=== PATIENT | male | born 1955 | race Caucasian/White ===

== ENCOUNTER 2022-06-25 14:39 | Inpatient (IN) | payer MEDICARE, OTHER, SELFPAY ==
[2022-06-25] VITALS (30 sets, daily range): BP systolic 133–162; BP diastolic 67–87; PULSE 48–100; RESP 10–23; TEMP 36.2–37; O2SAT 97–99
--- NOTE | 2022-06-25 14:30 | DI.CT_ITS ---
Exam(s) CT HEAD - STROKE PROTOCOL EXAM: CT HEAD - STROKE PROTOCOL CLINICAL HISTORY: left facial droop and slurred speech since 1400. TECHNIQUE: Imaging Protocol: Axial computed tomography images with coronal and sagittal reformatted images were created and reviewed COMPARISON: No exams were available for comparison FINDINGS: There are no skull fractures nor fluid in the visualized paranasal sinuses. There is no evidence of intracranial hemorrhage, mass effect, or shift of midline structures. There are no extra-axial fluid collections. The ventricles are not enlarged or shifted and there is no blo od within the ventricular system nor within the basal cisterns. IMPRESSION: No acute intracranial findings on this noninfused CT scan of the brain. Called by myself to ER. RADIATION DOSE DELIVERED: 922.7mGy.cm Total DLP DATA REPOSITORY: All CT scans at this facility are submitted to the National Radiology Data Registry (NRDR) Dose Index Registry (DIR) with the [employer] (A[employer]). RADIATION OPTIMIZATION: All CT scans at this facility use at least one of these dose optimization te chniques: automated exposure control; mA and/or kV adjustment per patient size (includes targeted exa ms where dose is matched to clinical indication); or iterative reconstruction.
--- NOTE | 2022-06-25 14:45 | DI.CT_ITS ---
Exam(s) CT BRAIN NECK CTA EXAM: CT BRAIN NECK CTA CLINICAL HISTORY: cta brain and neck. TECHNIQUE: Imaging Protocol: Axial CT angiography was performed with multi-slice acquisition and mu lti-planar and/or 3D reconstructions. CONTRAST MATERIAL: Intravenous: Omnipaque 350 Contrast volume:structured data in ml COMPARISON: MR MR BRAIN WO from 06/25/2022 FINDINGS: CTA Neck W: Aortic arch anatomy: The aortic arch anatomy is conventional. Anterior circulation: Aortic arch anatomy is conventional. No significant stenosis at the origin the great vessels off the aortic arch. Both common carotid arteries ascend with normal luminal diameters. There is no signif icant stenosis at the common carotid arteries and proximal internal carotid arteries and the proximal ICAs are patent in the neck and skull base. Posterior circulation: Both vertebral arteries ascend with normal luminal diameters after originated conventional fashion of f of the subclavian arteries. Both vertebral arteries ascend with generous patent luminal diameters and no evidence of intraluminal thrombus nor dissection. At the skull base both vertebral arteries c ontribute to the formation of the basilar artery. CTA Brain W: Anterior circulation: Both internal carotid arteries are patent in the skull base-carotid canals and cavernous sinuses. Weir praclinoid aspects are patent and nonaneurysmal. Both A1 segments are patent as are the anterior cer ebral arteries. There is no evidence of aneurysm at the level of the anterior communicating artery. Both middle cerebral arteries appear patent. No intraluminal thrombus. No tight stenoses. No occlu ailyn. No aneurysms. Posterior circulation: Basilar artery ascends with normal luminal diameter. No stenosis. No dolichoectasia. Distally give s off superior cerebellar arteries and above this level terminates as patent bilateral posterior cere bral arteries. There are no posterior communicating arteries on either side of the [id number]. No evidence of aneurysm tip of the basilar artery. CT BRAIN: There is no evidence of intracranial hemorrhage, mass effect, or shift of midline structures. There are no extra-axial fluid collections. Ventricles are not enlarged or shifted. There are no ring enh ancing lesions in the brain and no abnormal meningeal enhancement. There is a subtle area of hypodensity in the subcortical white matter high right frontal lobe. No he morrhage nor enhancement at this level. IMPRESSION: 1. No significant narrowing of the carotid and vertebral arteries in the neck. 2. Intracranial arteries are patent. No intraluminal thrombus nor stenoses evident. No aneurysms. 3. Subtle area of hypodensity in the high right frontal subcortical white matter. This may be sign ificant. No ring enhancing lesions at this level nor elsewhere in the brain. No abnormal meningeal enhancement. Called by myself to ER. Physician RADIATION DOSE DELIVERED: 2,301.38mGy.cm Total DLP DATA REPOSITORY: All CT scans at this facility are submitted to the National Radiology Data Registry (NRDR) Dose Index Registry (DIR) with the [employer] (ACR). RADIATION OPTIMIZATION: All CT scans at this facility use at least one of these dose optimization te chniques: automated exposure control; mA and/or kV adjustment per patient size (includes targeted exa ms where dose is matched to clinical indication); or iterative reconstruction.
[2022-06-25 14:59] LABS: Source Nasal/Nares
--- NOTE | 2022-06-25 15:00 | DI.MRI_ITS ---
Exam(s) MR BRAIN WO EXAM: MR BRAIN WO CLINICAL HISTORY: left facial droop and slurred speech TECHNIQUE: Multiplanar multisequence MRI of the brain was performed. COMPARISON: No exams were available for comparison FINDINGS: CEREBRAL PARENCHYMA: There is no evidence of intracranial hemorrhage, mass effect, or shift of midline structures. There are no extra-axial fluid collections. Ventricles are not enlarged or shifted. There is no significant focal signal abnormality in the cerebellar hemispheres nor within the jade, m idbrain, and thalami. In addition to multiple small sub cm FLAIR bright foci of periventricular signal abnormality, there i s also a thin strip of subcortical signal abnormality on DWI consistent with restricted diffusion in the high right frontoparietal region, this corresponding to the area of subtle hypodensity on the CT scan and consistent with an area of nonhemorrhagic early CVA, not yet exhibiting significant signal a bnormality on FLAIR and T2 sequences. No evidence of hemorrhage at this level nor elsewhere in the b rain. PITUITARY GLAND: No mass nor parasellar abnormality. No obvious abnormality in the cavernous sinuses. FLOW VOIDS: The expected flow void are noted. No evidence of vascular occlusion nor obvious tight filomena nosis. No obvious aneurysm nor obvious vascular malformation. PARANASAL SINUSES: The visualized paranasal sinuses appear unremarkable. No obvious finding ORBITS: No obvious findings. IMPRESSION: Early right-sided subcortical CVA (nonhemorrhagic) in territory of the right middle cerebral artery. This is in the right frontoparietal region. Findings discussed by myself with ER physician DATA REPOSITORY:
--- NOTE | 2022-06-25 15:00 | DI.RAD_ITS ---
Exam(s) XR PORTABLE CHEST AP EXAM: XR PORTABLE CHEST AP CLINICAL HISTORY: cva. TECHNIQUE: 2D digital imaging was performed. COMPARISON: No exams were available for comparison FINDINGS: Single AP portable view. Heart size is upper normal. The mediastinum is not widened. No confluent infiltrates nor pleural effusions. No pulmonary edema. No pneumothorax. Degenerative changes in the right shoulder joint noted. IMPRESSION: No acute pulmonary findings on this single AP portable view of the chest. DATA REPOSITORY: RADIATION DOSE DELIVERED:
[2022-06-25 15:01] LABS: Abs Immature Grans 0.02 10^3/uL (0.0-0.06); Absolute Basophil Count 0.03 10^3/uL (0.0-0.2); Absolute Eosinophil Count 0.19 10^3/uL (0.0-0.7); Absolute Lymphocyte Count 1.62 10^3/uL (1.2-3.4); Absolute Monocyte Count 0.54 10^3/uL (0.1-0.8); Absolute Neutrophil Count 2.35 10^3/uL (1.2-6.7); Basophils % 0.6; HCT 36.1 % (40.0-50.0); HGB 11.4 g/dL (13.5-17.5); Immature Grans % 0.4; Lymphocytes % 34.1; MCH 27.9 pg (27.0-33.0); MCHC 31.6 % (32.0-36.0); MCV 88 fL (80-95); MPV 9.8 fL (8.0-11.0); Monocytes % 11.4; Neutrophils % 49.5; Platelet Count 283 10^3/uL (130-400); RBC 4.09 10^6/uL (4.36-5.78); RDW 15.4 % (11.8-14.1); RDW-SD 50.2 fL; WBC 4.75 10^3/uL (4.4-10.8)
[2022-06-25 15:22] LABS: ALT 16 U/L (16-63); AST 12 U/L (15-37); Albumin 3.4 g/dL (3.4-5.0); Alkaline Phosphatase 67 U/L (46-116); Anion Gap 8.9 mmol/L (3-11); BUN 17 mg/dL (7-18); Bilirubin, Total 0.3 mg/dL (0.2-1.0); CO2 25.1 mmol/L (21.0-32.0); CREATININE 1.2 mg/dL (0.70-1.30); Calcium 8.4 mg/dL (8.5-10.1); Chloride 106 mmol/L (98-107); Estimated GFR 65.46 (mL/min/1.73m2); Glucose 91 mg/dL (74-106); Sodium 140 mmol/L (136-145); Total Protein 6.9 g/dL (6.4-8.2); Troponin I < 50 ng/L (<or=60)
[2022-06-25] MEDS: Omnipaque 350 MG/ML 500 ML BTL-Imaging package IJ (16:13)
--- NOTE | 2022-06-25 16:40 | ED.GENADUL_ITS ---
Discharge Plan Disposition Patient Disposition: [facility] INPATIENT Condition: Serious Discharge Details Clinical Impression: Acute cerebrovascular accident (CVA) Admit Date/Time: 06/25/22 18:48 Admit Provider: Manas Louise Attending Provider: Manas Louise Primary Care Provider: Angelina,Local ED Provider: Tutu Chaidez Discharge Data Discharge Date/Time-TO BE ENTERED AT DEPARTURE: 06/25/22 19:46 Medical Decision Making 1707 -- 67-year-old male here with new onset mild dysphasia and partial paralysis left face that started at 2 PM today. Presentation is consistent with acute CVA. Stat CT of the head was interpreted by radiology: No acute intracranial findings noted. On reassessment, partial left facial paralysis is improving. Patient also notes improvement in speech. I considered thrombolytic. Patient has low NIH stroke scale and improving symptoms. Patient declines thrombolytic treatment as part of a shared decision- making process given discussion of risk-benefit. Plan to obtain stat CTA of the brain and neck and MRI of the brain. I called and spoke with on-call neurologist, Dr. Pruitt, discussed ED presentation course, she agrees with treatment and recommended assessing swallow. Patient was able to swallow without any difficulty. Dr. Pruitt felt that his swallow was impacted, tPA should be considered but otherwise given low NIH stroke scale and improving symptoms, she agrees that tPA is not indicated. Plan to initiate treatment with aspirin 81 mg and Plavix 300 mg as recommended by Dr. Pruitt. -- Patient reassessed multiple times and continues to show improvement in deficit. Speech much clearer at this time. -- I spoke with the hospitalist, discussed ED presentation course, they will admit the patient. Care transition to hospitalist service at time of admission. Lab Data Lab results reviewed: Yes I reviewed the patient's lab results. Labs: Laboratory Tests Range/Units 06/25/22 06/25/22 06/25/22 14:54 14:54 14:54 WBC (4.4-10.8) 10^3/uL 4.75 RBC (4.36-5.78) 10^6/uL 4.09 L Hgb (13.5-17.5) g/dL 11.4 L Hct (40.0-50.0) % 36.1 L MCV (80-95) fL 88 MCH (27.0-33.0) pg 27.9 MCHC (32.0-36.0) % 31.6 L RDW (11.8-14.1) % 15.4 H Plt Count (130-400) 10^3/uL 283 MPV (8.0-11.0) fL 9.8 Immature Gran % 0.4 Neutrophils % 49.5 Lymphocytes % 34.1 Monocytes % 11.4 Eosinophils % 4.0 Basophils % 0.6 Nucleated RBC % (0.0-0.3) % 0.0 Absolute Neutrophils (1.2-6.7) 10^3/uL 2.35 Absolute Lymphocytes (1.2-3.4) 10^3/uL 1.62 Absolute Monocytes (0.1-0.8) 10^3/uL 0.54 Absolute Eosinophils (0.0-0.7) 10^3/uL 0.19 Absolute Basophils (0.0-0.2) 10^3/uL 0.03 Sodium (136-145) mmol/L 140 Potassium (3.5-5.1) mmol/L 4.0 Chloride (98-107) mmol/L 106 Carbon Dioxide (21.0-32.0) mmol/L 25.1 Anion Gap (3-11) mmol/L 8.9 BUN (7-18) mg/dL 17 Creatinine (0.70-1.30) mg/dL 1.2 Est GFR (CKD-EPI 2020) (mL/min/1.73m2) 65.46 Glucose (74-106) mg/dL 91 Calcium (8.5-10.1) mg/dL 8.4 L Magnesium (1.8-2.4) mg/dL 2.0 Total Bilirubin (0.2-1.0) mg/dL 0.3 AST (15-37) U/L 12 L ALT (16-63) U/L 16 Alkaline Phosphatase (46-116) U/L 67 Troponin I (<or=60) ng/L < 50 Total Protein (6.4-8.2) g/dL 6.9 Albumin (3.4-5.0) g/dL 3.4 COVID-19 Source Nasal/Nares HPI General Mode of arrival: ambulatory . Date/Time Provider Initiated Documentation: 06/25/22 14:42 . Limitations to Documentation: no limitations . Information obtained by: patient . HPI Narrative: 67-year-old male presents with chief complaint of difficulty with speech. Symptoms started suddenly around 2 PM while he was mountain biking. Patient notes his speech seems somewhat slurred. He has associated left-sided facial weakness. He denies weakness in his extremities. Patient denies recent trauma. No headache. No anticoagulants. Related Data Home Medications Medication Instructions Recorded Confirmed lisinopril 10 mg tablet 0.5 tab DAILY 06/25/22 06/25/22 tadalafil 5 mg tablet 1 tab DAILY 06/25/22 06/25/22 testosterone 1.62 % (20.25 mg/1.25 20 mg DAILY 06/25/22 06/25/22 gram) transdermal gel packet aspirin 81 mg chewable tablet 81 mg CH DAILY #30 tabs 06/26/22 (Children's Aspirin) atorvastatin 20 mg tablet 20 mg PO QHS #30 tabs 06/26/22 clopidogrel 75 mg tablet 75 mg PO DAILY #30 tabs 06/26/22 Previous Rx's Medication Instructions Recorded aspirin 81 mg chewable tablet 81 mg CH DAILY #30 tabs 06/26/22 (Children's Aspirin) atorvastatin 20 mg tablet 20 mg PO QHS #30 tabs 06/26/22 clopidogrel 75 mg tablet 75 mg PO DAILY #30 tabs 06/26/22 Allergies Allergy/AdvReac Type Severity Reaction Status Date / Time shellfish derived Allergy Severe Unverified 06/25/22 19:44 bee venom protein (honey bee) Allergy Intermediate Unverified 06/25/22 19:44 General Stated Complaint: CVA/TIA MEG: 3 Review of Systems All systems reviewed & are unremarkable except as noted in HPI and below Constitutional Constitutional: Denies fever(s) and Denies weakness Cardiovascular Cardiovascular: Denies chest pain Musculoskeletal Musculoskeletal: Denies numbness Neurologic Neurologic: Denies numbness, Denies sensory deficit and Denies weakness PFSH All Active Problems (Updated 06/26/22 @ 20:41 by Allison Pruitt MD) Carotid stenosis, asymptomatic (Acute) Hyperlipidemia (Acute) Prediabetes (Acute) BPH (benign prostatic hyperplasia) (Chronic) HTN (hypertension) (Chronic) Acute cerebrovascular accident (CVA) (Acute) Medical History (Updated 06/26/22 @ 20:41 by Allison Pruitt MD) AAA (abdominal aortic aneurysm) Surgical History (Updated 06/26/22 @ 08:28 by Manas Louise) S/P ACL repair Left Social History Smoking/Tobacco Use Status: Never Smoking risk assessment performed?: Yes Alcohol Intake: current Alcohol Intake frequency: holidays/special occasions only Substance use type: does not use Do you feel safe at home: Yes Do you feel safe in your relationship?: Yes Exam Const General: cooperative and no acute distress HENMT Head: normocephalic and atraumatic Mouth: moist mucous membranes Eyes Conjunctivae: normal conjunctivae Sclera: normal sclerae EOM: EOM intact bilaterally Neck Neck: trachea midline and supple Resp Auscultation: clear to auscultation bilaterally, no rales, no rhonchi and no wheezes Cardio Rate: regular rate and not tachycardic Rhythm: regular rhythm GI Palpation: soft, not firm, no guarding, no masses, not rigid and nontender Skin General skin exam: no rashes or lesions noted Neuro General: patient alert, patient awake, patient oriented x3 and tone normal Cognition: normal cognition Speech: abnormal speech (mild dysphasia ) Motor: other (Strength 5 out of 5 all extremities, left facial droop noted - partial paral) Sensory Exam: no sensory deficits noted Extrem General: no edema Psych Appearance: grossly normal Mental Status: mental status grossly normal Speech and Movement: speech and movement normal Course Vital Signs Vital signs: Vital Signs Temperature 36.2 C L 06/25/22 15:13 Pulse 55 L 06/25/22 15:13 Respiratory Rate 18 06/25/22 15:13 Blood Pressure 143/87 H 06/25/22 15:13 Pulse Oximetry 97 06/25/22 15:13 Temperature 36.2 C L 06/25/22 15:13 Temperature Source Tympanic 06/25/22 15:13 Pulse 55 L 06/25/22 15:13 Respiratory Rate 18 06/25/22 15:13 Respiratory Effort 06/25/22 15:20 Respiratory Depth Normal 06/25/22 15:20 Respiratory Pattern Normal 06/25/22 15:20 Blood Pressure 143/87 H 06/25/22 15:13 Blood Pressure Position Supine 06/25/22 15:13 Pulse Oximetry 97 06/25/22 15:13 Oxygen Delivery Method Room Air 06/25/22 15:13 Oxygen Flow Rate 0 06/25/22 15:13 Pain Level 0 06/25/22 15:13 Lab/Test Results Lab/Test Results: Laboratory Tests Range/Units 06/25/22 06/25/22 06/25/22 14:54 14:54 14:54 WBC (4.4-10.8) 10^3/uL 4.75 RBC (4.36-5.78) 10^6/uL 4.09 L Hgb (13.5-17.5) g/dL 11.4 L Hct (40.0-50.0) % 36.1 L MCV (80-95) fL 88 MCH (27.0-33.0) pg 27.9 MCHC (32.0-36.0) % 31.6 L RDW (11.8-14.1) % 15.4 H Plt Count (130-400) 10^3/uL 283 MPV (8.0-11.0) fL 9.8 Immature Gran % 0.4 Neutrophils % 49.5 Lymphocytes % 34.1 Monocytes % 11.4 Eosinophils % 4.0 Basophils % 0.6 Nucleated RBC % (0.0-0.3) % 0.0 Absolute Neutrophils (1.2-6.7) 10^3/uL 2.35 Absolute Lymphocytes (1.2-3.4) 10^3/uL 1.62 Absolute Monocytes (0.1-0.8) 10^3/uL 0.54 Absolute Eosinophils (0.0-0.7) 10^3/uL 0.19 Absolute Basophils (0.0-0.2) 10^3/uL 0.03 Sodium (136-145) mmol/L 140 Potassium (3.5-5.1) mmol/L 4.0 Chloride (98-107) mmol/L 106 Carbon Dioxide (21.0-32.0) mmol/L 25.1 Anion Gap (3-11) mmol/L 8.9 BUN (7-18) mg/dL 17 Creatinine (0.70-1.30) mg/dL 1.2 Est GFR (CKD-EPI 2020) (mL/min/1.73m2) 65.46 Glucose (74-106) mg/dL 91 Calcium (8.5-10.1) mg/dL 8.4 L Magnesium (1.8-2.4) mg/dL 2.0 Total Bilirubin (0.2-1.0) mg/dL 0.3 AST (15-37) U/L 12 L ALT (16-63) U/L 16 Alkaline Phosphatase (46-116) U/L 67 Troponin I (<or=60) ng/L < 50 Total Protein (6.4-8.2) g/dL 6.9 Albumin (3.4-5.0) g/dL 3.4 COVID-19 Source Nasal/Nares
[2022-06-25] MEDS: Clopidogrel 300 MG TAB PO (17:25)
[2022-06-25] MEDS: Aspirin 81 MG CHEW (18:12)
[2022-06-25 18:17] LABS: Troponin I 50 ng/L (<or=60)
--- NOTE | 2022-06-25 18:46 | HPE_ITS ---
Date of service: 06/25/22 Time of Service: 18:47 Assessment and Plan Assessment and plan (1) Acute cerebrovascular accident (CVA): Start date: 06/25/22 Status: Acute Assessment and plan: This is a 67-year-old gentleman presenting with acute onset of left facial numbness and dysarthria which has cleared on loading dose of Plavix and baby aspirin but confirmed by MRI to be in the right MCA region involving the right parietal frontal cortex. He was not candidate for tPA outside the window of treatment and has no occlusive major arterial disease. He will be observed on telemetry for rhythm and echocardiogram with bubble study will be performed. PT/OT and PHYSICIAN IN PRIVATE PRACTICE will be evaluated patient as well. He will have his lisinopril held for permissive hypertension. He is a full code. (2) HTN (hypertension): Status: Chronic Assessment and plan: Chronically on low-dose lisinopril with this being held for permissive hypertension during his acute stroke admission. Monitor and restart medication as indicated. Follow-up lab for cardiovascular risk. (3) BPH (benign prostatic hyperplasia): Status: Chronic Assessment and plan: Hold tadalafil while hospitalized. History of Present Illness History of Present Illness Chief Complaint: Sudden onset left facial weakness Narrative: This is a 67-year-old male patient presenting with chief complaint of difficulty with speech.? Symptoms started suddenly around 2 PM the day of presentation to ED while he was mountain biking.? Patient notes his speech seems somewhat s lurred.? He has associated left-sided facial weakness.? He denies weakness in his extremities.? Patient denies recent trauma.? No headache.? No anticoagulants. The patient does have a history of hypertension which is well controlled and is on daily tadalafil for mild BPH and urinary symptoms but also erectile dysfunction. He is physically active status post left knee surgery when he was younger for an ACL repair. He did notice some garbled speech but had no problems finding his words but the facial weakness cause dysarthria. His symptoms cleared after being admitted and presently he has no complaints of weakness or speaking difficulty. His memory is intact. Review of Systems Narrative: 13 point review of systems otherwise unrevealing or stable. PFSH All Active Problems (Updated 06/26/22 @ 08:21 by Manas Louise) BPH (benign prostatic hyperplasia) (Chronic) HTN (hypertension) (Chronic) Acute cerebrovascular accident (CVA) (Acute) Surgical History (Updated 06/26/22 @ 08:28 by Manas Louise) S/P ACL repair Left Social History Smoking/Tobacco Use Status: Never Smoking risk assessment performed?: Yes Alcohol Intake: current Alcohol Intake frequency: holidays/special occasions only Substance use type: does not use Do you feel safe at home: Yes Do you feel safe in your relationship?: Yes Meds Allergies and Home Medications Allergies Allergy/AdvReac Type Severity Reaction Status Date / Time shellfish derived Allergy Severe Unverified 06/25/22 19:44 bee venom protein (honey bee) Allergy Intermediate Unverified 06/25/22 19:44 Home Medications Medication Instructions Recorded Confirmed Type lisinopril 10 mg tablet 0.5 tab DAILY 06/25/22 06/25/22 History tadalafil 5 mg tablet 1 tab DAILY 06/25/22 06/25/22 History testosterone 1.62 % (20.25 mg/1.25 20 mg DAILY 06/25/22 06/25/22 History gram) transdermal gel packet Exam Narrative Exam Narrative: General: Patient appears appropriate for age, alert and oriented x3 and in no acute distress. Speech is normal. HEENT: Normocephalic, eyes with pupils equal and react to light symmetrically, extraocular movement tact and sclera anicteric. Oropharynx with moist mucosa and good dentition. Neck: Supple without JVD and no auscultated bruits. Back: Normal posture without CVA tenderness. Lungs: Clear to auscultation and percussion. Heart: Regular rate and rhythm with no murmurs gallops appreciated. Abdomen: Normal contour, soft nontender to palpation with no palpable hepatosplenomegaly. Bowel sounds positive all quadrants. Genitalia/rectal: Exam deferred. Extremities: No pitting edema, cyanosis or clubbing. Peripheral pulses intact. Well-healed scar over left knee. Follow-up joints have fair range of motion. Trace nonpitting edema over ankles and feet. Some chronic skin changes over legs with loss of hair and atrophic skin but no ulceration. Skin: Darkly tanned over sun exposed areas with actinic changes, rough texture, warm and dry. Neuro: Cranial nerves II through XII grossly intact. No focalizing motor deficits and no tremor. Reflexes physiologic and symmetrical. Negative Romberg. No Babinski's. Psych: Normal affect and mood. Normal thought processes. Remote and recent memory intact. Results Imaging Imaging Studies: EXAM: ? MR BRAIN WO CLINICAL HISTORY:? left facial droop and slurred speech TECHNIQUE:? Multiplanar multisequence MRI of the brain was performed. COMPARISON:? No exams were available for comparison FINDINGS: CEREBRAL PARENCHYMA: There is no evidence of intracranial hemorrhage, mass effect, or shift of midline structures.? There are no extra-axial fluid collections.? Ventricles are not enlarged or shifted. There is no significant focal signal abnormality in the cerebellar hemispheres nor within the jade, midbrain, and thalami. In addition to multiple small sub cm FLAIR bright foci of periventricular signal abnormality, there is also a thin strip of subcortical signal abnormality on DWI consistent with restricted diffusion in the high right frontoparietal region, this corresponding to the area of subtle hypodensity on the CT scan and consistent with an area of nonhemorrhagic early CVA, not yet exhibiting significant signal abnormality on FLAIR and T2 sequences.? No evidence of hemorrhage at this level nor elsewhere in the brain. PITUITARY GLAND: No mass nor parasellar abnormality. No obvious abnormality in the cavernous sinuses. FLOW VOIDS: The expected flow void are noted. No evidence of vascular occlusion nor obvious tight stenosis.? No obvious aneurysm nor obvious vascular malformation. PARANASAL SINUSES: The visualized paranasal sinuses appear unremarkable. No obvious finding ORBITS: No obvious findings. IMPRESSION: Early right-sided subcortical CVA (nonhemorrhagic) in territory of the right middle cerebral artery.? This is in the right frontoparietal region. Exam(s) CT BRAIN ? NECK CTA EXAM: ? CT BRAIN ? NECK CTA CLINICAL HISTORY: ? cta brain and neck. ? TECHNIQUE:? Imaging Protocol:? Axial CT angiography was performed with multi-slice acquisition and multi-planar and/or 3D reconstructions. CONTRAST MATERIAL:? Intravenous: Omnipaque 350 Contrast volume:structured data in ml COMPARISON:? MR MR BRAIN WO from 06/25/2022 FINDINGS: CTA Neck W: Aortic arch anatomy: The aortic arch anatomy is conventional. Anterior circulation: Aortic arch anatomy is conventional.? No significant stenosis at the origin the great vessels off the aortic arch.? Both common carotid arteries ascend with normal luminal diameters.? There is no significant stenosis at the common carotid arteries and proximal internal carotid arteries and the proximal ICAs are patent in the neck and skull base. Posterior circulation: Both vertebral arteries ascend with normal luminal diameters after originated conventional fashion off of the subclavian arteries.? Both vertebral arteries ascend with generous patent luminal diameters and no evidence of intraluminal thrombus nor dissection.? At the skull base both vertebral arteries contribute to the formation of the basilar artery. CTA Brain W: Anterior circulation: Both internal carotid arteries are patent in the skull base-carotid canals and cavernous sinuses.? Supraclinoid aspects are patent and nonaneurysmal.? Both A1 segments are patent as are the anterior cerebral arteries.? There is no evidence of aneurysm at the level of the anterior communicating artery. Both middle cerebral arteries appear patent.? No intraluminal thrombus.? No tight stenoses.? No occlusion.? No aneurysms. Posterior circulation: Basilar artery ascends with normal luminal diameter.? No stenosis.? No dolichoectasia.? Distally gives off superior cerebellar arteries and above this level terminates as patent bilateral posterior cerebral arteries.? There are no posterior communicating arteries on either side of the [id number].? No evidence of aneurysm tip of the basilar artery. CT BRAIN: There is no evidence of intracranial hemorrhage, mass effect, or shift of midline structures.? There are no extra-axial fluid collections.? Ventricles are not enlarged or shifted.? There are no ring enhancing lesions in the brain and no abnormal meningeal enhancement. There is a subtle area of hypodensity in the subcortical white matter high right frontal lobe.? No hemorrhage nor enhancement at this level. IMPRESSION: 1. No significant narrowing of the carotid and vertebral arteries in the neck.? 2.? Intracranial arteries are patent.? No intraluminal thrombus nor stenoses evident.? No aneurysms. 3. ? Subtle area of hypodensity in the high right frontal subcortical white matter.? This may be significant.? No ring enhancing lesions at this level nor elsewhere in the brain.? No abnormal meningeal enhancement. Labs Result diagrams: 06/26/22 06:35 06/26/22 06:35 Labs: Laboratory Results - last 24 hr 06/25/22 06/25/22 06/25/22 14:54 14:54 14:54 WBC 4.75 RBC 4.09 L Hgb 11.4 L Hct 36.1 L MCV 88 MCH 27.9 MCHC 31.6 L RDW 15.4 H Plt Count 283 MPV 9.8 Immature Gran % 0.4 Neutrophils % 49.5 Lymphocytes % 34.1 Monocytes % 11.4 Eosinophils % 4.0 Basophils % 0.6 Nucleated RBC % 0.0 Absolute Neutrophils 2.35 Absolute Lymphocytes 1.62 Absolute Monocytes 0.54 Absolute Eosinophils 0.19 Absolute Basophils 0.03 Sodium 140 Potassium 4.0 Chloride 106 Carbon Dioxide 25.1 Anion Gap 8.9 BUN 17 Creatinine 1.2 Est GFR (CKD-EPI 2020) 65.46 Glucose 91 Calcium 8.4 L Magnesium 2.0 Total Bilirubin 0.3 AST 12 L ALT 16 Alkaline Phosphatase 67 Troponin I < 50 Total Protein 6.9 Albumin 3.4 COVID-19 Source Nasal/Nares 06/25/22 17:42 WBC RBC Hgb Hct MCV MCH MCHC RDW Plt Count MPV Immature Gran % Neutrophils % Lymphocytes % Monocytes % Eosinophils % Basophils % Nucleated RBC % Absolute Neutrophils Absolute Lymphocytes Absolute Monocytes Absolute Eosinophils Absolute Basophils Sodium Potassium Chloride Carbon Dioxide Anion Gap BUN Creatinine Est GFR (CKD-EPI 2020) Glucose Calcium Magnesium Total Bilirubin AST ALT Alkaline Phosphatase Troponin I 50 Total Protein Albumin COVID-19 Source Last Vital Signs Temp 36.2 C L 06/25/22 15:13 Pulse 100 H 06/25/22 17:45 Resp 21 06/25/22 17:50 BP 162/82 H 06/25/22 17:33 Pulse Ox 99 06/25/22 17:50
[2022-06-25 22:50] LABS: TSH (W/Ref FT4) 0.53 uIU/mL (0.36-3.74)
[2022-06-25 23:04] LABS: COVID-19 PCR Negative (Negative)
[2022-06-26] VITALS (7 sets, daily range): BP systolic 134–148; BP diastolic 72–86; PULSE 55–60; RESP 12–17; TEMP 36.2–36.8; O2SAT 96–98
--- NOTE | 2022-06-26 | DI.US_ITS ---
APPROVED REPORT EXAM: Comprehensive 2D, Doppler, and color-flow Echocardiogram Patient Location: In-Patient Personnel Monitor: Tammi Dumont RDCS (AE) Indications: CVA Echo Enhancing Agent Indication: Rule out Shunt Agent(s) / Amount(s) Used: Agitated Saline 30.0 cc Comments: Contrast study was performed with 3 IV injections of 10ccs of agitated normal saline, at re , with cough and post valsalva maneuver. Other Information Study Quality: Adequate Conclusion Normal left ventricular wall thickness and chamber size. Estimated ejection fraction is 60 to 65%. Wall motion is normal Normal right ventricular size and systolic function Both atria are normal in size The atrial septum is thin and hypermobile. There is no intracardiac shunting identified with injecti on of agitated saline Trileaflet aortic valve. Mild to moderate aortic regurgitation Normal mitral valve with trace regurgitation Normal tricuspid valve with trace regurgitation Dilated aortic root and ascending aorta Wall motion Left Ventricle The left ventricle is normal size. The left ventricular systolic function is normal. The left ventric ular ejection fraction is within the normal range. There is normal left ventricular wall thickness. T here is normal LV segmental wall motion. There is no ventricular septal defect visualized. LVEF is 60 -65%. Right Ventricle The right ventricle is normal size. The right ventricular systolic function is normal. The RVSP is 22 .1 mmHg. Atria The left atrium size is normal. The right atrium size is normal. Atrial septal aneurysm is present. Aortic Valve The aortic valve is normal in structure. Aortic valve is trileaflet. There is no aortic valvular sten osis. Mild to moderate aortic regurgitation. Mitral Valve The mitral valve is normal in structure. No evidence of mitral valve stenosis. Trace mitral regurgita tion. Tricuspid Valve The tricuspid valve is normal in structure. There is no tricuspid valve stenosis. Trace tricuspid reg urgitation. Pulmonic Valve The pulmonary valve is normal in structure. There is no pulmonic valvular stenosis. Trace pulmonic re gurgitation. Great Vessels Aortic root is mildly dilated. The ascending aorta is dilated, 4.22 cm Aortic arch is normal in nilda lennox. IVC is normal in size and collapses >50% with inspiration. Pericardium There is no pericardial effusion. 2D Dimensions IVSD d PLAX 0.95 cm M: 0.6-1.2 LV Vol A2C d MOD 148.0 mL LVPW d PLAX 0.95 cm M: 0.6 - 1.2 LV Vol A4C d MOD 160.7 mL LVID d PLAX 4.63 cm M: 4.2 - 5.8 LA vol/ BSA A2C s A-L 39.0 mL/m2 LVDs 3.10 cm M: 2.5 - 4.0 LA vol/ BSA A4C s A-L 22.1 mL/m2 Ao Root d 3.80 cm M: 3.1 - 3.7 LA Vol/ BSA Biplane s A-L 30.5 mL/m2 RA Area A4C 15.24 cm2 LA Area A4C s MOD 17.21 cm2 RA Vol/ BSA A4C s A-L 17.8 mL/m2 LA Area A2C s MOD 23.70 cm2 Ao Asc Diam d 4.22 cm M: 2.6 - 3.4 LV EF A4C MOD 65.5 % LV EF Teichholz 60.5 % LV EF A2C MOD 60.9 % LVEF (So's) 63.18 % M: 52 - 72 LV EF Biplane MOD 63.2 % LV Volume 115.87 mL M: 62 - 150 SV 99.72 mL LV Volume Index 54.39 mL/m2 M: 34 - 74 SV Index 46.69 mL/m2 LV Vol Biplane MOD 157.8 mL FS 32.20 % M-Mode TAPSE 3.26 cm (M/F) >1.7 LV Diastology MV E' medial 0.072 (>0.07 m/s) E/A Ratio 0.8 LV E/e MED 7.05 (<14) MV E Vmax 0.51 (0.4-1.3 m/s) MV E' lateral 0.091 (>0.1 m/s) MV A Vmax 0.65 (0.4-1.3 m/s) LV E/e LAT 5.55 (<14) MV E/A Ratio 0.75 MV E/E' medial 7.07 MV E/E' lateral 5.56 Aortic Valve LVOT Area 3.51 cm2 AoV Area Vmax 2.85 cm2 LVOT Vmax 1.04 m/s AoV Area/ BSA (Vmax) 1.33 cm2/m2 LVOT Mean Nigel. 0.65 m/s DANIEL Mean Nigel. 2.65 cm2 LVOT Peak Grad 4.4 mmHg DANIEL Mean Nigel. Index 1.24 cm2/m2 LVOT Mean Grad 2.0 mmHg AR DT 3187 msec LVOT VTI 0.217 m AR PHT 924 msec LVOT Diam s 2.10 cm AoV Vmax 1.28 m/s Velocity Ratio 0.81 AoV Mean Nigel. 0.86 m/s AoV Peak Grad 6.6 mmHg LVOT SV 76.09 mL AoV Mean Grad 3.4 mmHg AoV VTI 0.234 m AoV Area VTI 3.24 cm2 AoV Area/ BSA (VTI) 1.52 cm/m2 Mitral Valve MV DT 426 (160-240 msec) MV PHT 123 msec MV Area PHT 1.78 cm2 MV VTI 0.281 m MV Area VTI 2.71 (4.0-6.0 cm2) Pulmonary Valve PV Vmax 1.16 (0.5-1.5 m/s) RVOT Peak Gr. 1.35 mmHg PV Peak Grad 5.4 mmHg RVOT Mean Gr. 0.55 mmHg PV Mean Grad 2.3 mmHg RVOT VTI 0.114 m PV VTI 0.206 m RVOT Vmax 0.58 m/s Tricuspid Valve TR Peak Grad 19.1 mmHg TR Vmax 2.19 m/s RA Pressure 3.00 mmHg RVSP (TR) 22.1 mmHg
[2022-06-26 06:59] LABS: Abs Immature Grans 0.01 10^3/uL (0.0-0.06); Absolute Basophil Count 0.03 10^3/uL (0.0-0.2); Absolute Eosinophil Count 0.28 10^3/uL (0.0-0.7); Absolute Lymphocyte Count 1.58 10^3/uL (1.2-3.4); Absolute Monocyte Count 0.53 10^3/uL (0.1-0.8); Absolute Neutrophil Count 2.47 10^3/uL (1.2-6.7); Basophils % 0.6; Eosinophils % 5.7; HCT 39.4 % (40.0-50.0); HGB 12.8 g/dL (13.5-17.5); Immature Grans % 0.2; Lymphocytes % 32.2; MCH 27.6 pg (27.0-33.0); MCHC 32.5 % (32.0-36.0); MCV 85 fL (80-95); MPV 9.7 fL (8.0-11.0); Monocytes % 10.8; Neutrophils % 50.5; Platelet Count 305 10^3/uL (130-400); RBC 4.63 10^6/uL (4.36-5.78); RDW 15.5 % (11.8-14.1); RDW-SD 48.7 fL
[2022-06-26 07:22] LABS: ALT 17 U/L (16-63); AST 14 U/L (15-37); Albumin 3.6 g/dL (3.4-5.0); Alkaline Phosphatase 71 U/L (46-116); Anion Gap 8.3 mmol/L (3-11); BUN 15 mg/dL (7-18); Bilirubin, Total 0.4 mg/dL (0.2-1.0); CO2 25.7 mmol/L (21.0-32.0); CREATININE 1.1 mg/dL (0.70-1.30); Calcium 8.8 mg/dL (8.5-10.1); Chloride 105 mmol/L (98-107); Estimated GFR 72.67 (mL/min/1.73m2); Glucose 95 mg/dL (74-106); Potassium 3.9 mmol/L (3.5-5.1); Sodium 139 mmol/L (136-145); Total Protein 7.5 g/dL (6.4-8.2)
[2022-06-26 08:08] LABS: Lab Add On Test COMPLETED
[2022-06-26 08:23] LABS: Calculated LDL 113 mg/dL (<100); Cholesterol 179 mg/dL (<200); HDL Cholesterol 45 mg/dL (40-60); Triglyceride 109 mg/dL (<150)
[2022-06-26 08:29] LABS: Hemoglobin A1C 6.2 % (<5.7)
[2022-06-26] MEDS: Aspirin 81 MG CHEW CH (09:07)
[2022-06-26] MEDS: Clopidogrel 75 MG TAB PO (09:07)
--- NOTE | 2022-06-26 12:57 | W.NUTCONSULT ---
Date of service: 06/26/22 Time of Service: 12:57 Nutritional Consult ASSESSMENT: 67 year old male with BMI wnl admitted yesterday with CVA. Visiting from [place]. Home meds: 10 mg lisinopril. PMH: HTN. Labs: A1c: 6.2%, chol: 179, ldl: 113, HDL: 45, tri. Manas and his are avid cyclists and follow a mostly plant based diet. Reviewed diet and life style questions in relation to CVA. Following Heart Healthy diet with adequate intake. Declined further diet education. Not considered at nutritional risk. MONITORING AND EVALUATION: will be available prn Time Spent in Nutritional Counseling and Treatment: 5
--- NOTE | 2022-06-26 13:32 | PT.INIE ---
Date of service: 06/26/22 Time of Service: 10:54 PT Notes Visit Reasons: Right MCA CVA Physical Therapy Inpatient Initial Evaluation Date: 06/26/2022 Referring Doctor: Manas Louise MD PT Orders: PT CONSULT: Limited ability Precautions: Fall. Standard. Activity as tolerated. Patient Profile/Admitting Diagnosis: Manas is a 67-year-old male patient who presented to the ED on 06/25/2022 due to partial paralysis of the L side of his face and difficulty with speech. Patient is diagnosed with acute CVA with brain MRI reading as follows: Early right-sided subcortical CVA (nonhemorrhagic) in territory of the right middle cerebral artery.? This is in the right frontoparietal region. Co-morbid conditions for this admission include HTN and BPH. PMHX: All Active Problems?(Updated 06/26/22 @ 08:21 by Manas Louise) BPH (benign prostatic hyperplasia) (Chronic) HTN (hypertension) (Chronic) Acute cerebrovascular accident (CVA) (Acute) Surgical History?(Updated 06/26/22 @ 08:28 by Manas Louise) S/P ACL repair Left Social History/Home Situation: Lives with in a private home in [facility]. Here in [place] vacationing. 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 Equipment Owned/DME: None Subjective: Agreeable to PT consult. No headache. Denies chest pain. Vision okay. Verbalizes that his speech is almost at baseline. Objective: General Observation: Mental Status: Alert and oriented as to person, place, time, and purpose. Able to pay attention, focus, and respond appropriately. Pain: Denies Vital Signs: WNL as closely monitored by nursing staff ROM: Right Upper Extremity: Shoulder Flexion lacks the last 50% of AROM due to preexisting frozen shoulder. Shoulder abduction lacks the last 50% of AROM due to preexisting frozen shoulder. Elbow flexion WFL. Wrist flexion WFL. Functional opening and closing of hand WFL. Left Upper Extremity: Shoulder Flexion WFL. Shoulder abduction WFL. Elbow flexion WFL. Wrist flexion WFL. Functional opening and closing of hand WFL. Right Lower Extremity: Hip flexion WFL. Hip abduction WFL. Knee flexion WFL. Ankle dorsiflexion WFL. Ankle plantarflexion WFL. Left Lower Extremity: Hip flexion WFL. Hip abduction WFL. Knee flexion WFL. Ankle dorsiflexion WFL. Ankle plantarflexion WFL. Strength: Right Upper Extremity: Shoulder flexors 3-/5. Shoulder abductors 3-/5. Elbow flexors 5/5. Elbow extensors 5/5. Immersion Metalcleaner strong. Left Upper Extremity: Shoulder flexors 5/5. Shoulder abductors 5/5. Elbow flexors 5/5. Elbow extensors 5/5. Immersion Metalcleaner strong. Right Lower Extremity: Hip flexors 4/5. Hip abductors 4/5. Knee flexors 5/5. Knee extensors 5/5. Ankle dorsiflexors 5/5. Ankle plantarflexors 5/5. Left Lower Extremity: Hip flexors 5/5. Hip abductors 5/5. Knee flexors 5/5. Knee extensors 5/5. Ankle dorsiflexors 5/5. Ankle plantarflexors 5/5. Bed Mobility/Transfers: Rolling independent Supine to sit independent Sit to supine independent Sit to stand independent Stand to sit independent Bed to reclining chair independent Reclining chair to bed independent Gait: Instructed patient with level surface ambulation of 350 feet independently. Negligible limp seen on the L LE due to an arthritic hip due to be repaired in August of 2022. Balance: Static Sitting: Normal Dynamic Sitting: Normal Static Standing: Fair Dynamic Standing: Fair Special Tests: Mobility Limitations Standardized Measure [facility] 6 clicks Basic Mobility Inpatient Short Form: Raw Score: 24 CMS Score: 0% deficit Tongue deviation: to L Pronator Drift: Negative on either side 30-second chair rise: 25x 4-stage Balance test: Able to to maintain feet together, semi-tandem, and full tandem positions for 10 seconds but is unable to do so with the one-legged stance. Rapid Alternating Movement: Intact Informed Consent/Education: Patient was instructed in purpose of PT consult. Assessment: Strength in B UE/LE symmetric except for the R shoulder that has been frozen. L hip antalgia minimally limiting safety of gait. Gait stable. No apparent motor affectation in all 4 limbs. Lower half of face remains minimally paretic. Patient is assessed [place] a 26995 moderate complexity based on the following: History: 67-year-old male with past medical history as indicated above Examination: Demonstrable impairment in strength, balance, and mobility level with underlying impairments and functional limitations as exhibited above as well as deficit score of 0% utilizing the [facility] Mobility Inpatient Short Form Presentation: Stable Decision Makin moderate complexity Goals: N/A. PT evaluation only. Plan of Care/Treatment Plan: N/A. PT evaluation only. DISCHARGE RECOMMENDATIONS: [X] Home with no services. Home when medically cleared by hospitalist. No equipment needs at this time. [] Home with services [specify] [] Home with outpatient PT [] [] SNF for continued rehabilitation [] [] Technical Maintenance Specialist Care [] [] SNF versus LTC based on ability to participate and progress [] TREATMENT CODE/TIME: 61074 x 20 minutes, 97807 x 21 minutes begining at 10:54 AM and 13:32 PM. Thank you for the opportunity to participate in the care of this patient. Nory Michaels PT, DPT, CLT [facility] [place], [place]
--- NOTE | 2022-06-26 16:06 | W.NEUROCONSU ---
Date of service: 06/26/22 Time of Service: 16:06 Assessment and Plan Assessment and plan (1) Carotid stenosis, asymptomatic: Status: Acute (2) Acute cerebrovascular accident (CVA): Status: Acute (3) Prediabetes: Status: Acute (4) Hyperlipidemia: Status: Acute (5) HTN (hypertension): Status: Chronic Assessment and plan: Mr. Dyson was admitted for an acute right frontal ischemic stroke manifested by dysarthria and L face weakness and numbness, now resolved, of unclear etiology. He has no evidence of large vessel disease. I recommend further work-up with extended cardiac monitoring of at least 30 days. He has already arranged this with his boat outboard engine mechanic in [place]. He will continue aspirin 81mg daily + clopidogrel 75mg daily x 30 days, after which he should continue 81mg daily alone indefinitely. ADRs discussed. He will also start atorvastatin 20mg daily for secondary stroke prevention and goal LDL <70. ADRs discussed. He has a new diagnosis of pre-diabetes which we discussed. He will work on dietary changes. Goal long-term BP <140-90. He has an incidental finding of a left carotid stenosis. We discussed this finding as well. Medication management recommended - anti-platelet, statin, and good BP control. He should have monitoring as per vascular vs neurology when he returns to [place]. He is scheduled for an upcoming hip surgery. I discussed with them my recommendation that all non-urgent procedures be postponed until at least 6months post-stroke due to increased stroke risk. Finally, we discussed risk for recurrent symptoms and what he should do in the event of new/recurrent symptoms. He should arrange for neurology follow-up in [place]. He has my card and is encouraged to reach out for any questions or concerns. History of Present Illness History of Present Illness Chief Complaint: stroke Narrative: Handedness: right. HPI: Mr. Dyson is a 67 year-old with hypertension, thoracic AAA. low testosterone, and ED. Mr. Dyson is from [place] and in the area to mountain bike. Yesterday, 06/25/22, about 1 mile into his bike ride he experienced acute onset slurred speech along with L face weakness and numbness. EMS noted left hand weakness on exam, but Mr. Dyson never noticed left hand/arm symptoms. He presented to the [facility] ER. BP 143/87. NIHSS 3. His symptoms quickly improved such that he was not a candidate for tPA. He is now asymptomatic. He was given clopidogrel 300mg + aspirin 81mg daily in the ER and continued on clopidogrel 75mg + aspirin 81mg daily. He has undergone the work-up as below. His Ivory was at bedside. He has a boat outboard engine mechanic in [place] whom he has already contacted and has arranged for cardiac monitoring there. He is scheduled for hip surgery in August. Work-up: -CTH (06/25/22): no acute findings. I reviewed these images personally and this is my personal interpretation. -CTA head/neck (06/25/22): read by radiology as normal but I see 50-60% L ICA stenosis. I reviewed these images personally and this is my personal interpretation. -MRI brain w/o (06/25/22): acute right frontal cortical stroke. Mild chronic vascular changes. I reviewed these images personally and this is my personal interpretation. -TTE (06/26/22): EF 60-65%, no wall motion abnormalities. LA ok. No PFO. -Labs: A1c 6.2, LDL 113 -Tele: no afib. Review of Systems All systems reviewed & are unremarkable except as noted in HPI and below PFSH All Active Problems (Updated 06/26/22 @ 20:41 by Allison Pruitt MD) Carotid stenosis, asymptomatic (Acute) Hyperlipidemia (Acute) Prediabetes (Acute) BPH (benign prostatic hyperplasia) (Chronic) HTN (hypertension) (Chronic) Acute cerebrovascular accident (CVA) (Acute) Medical History (Updated 06/26/22 @ 20:41 by Allison Pruitt MD) AAA (abdominal aortic aneurysm) Surgical History (Updated 06/26/22 @ 08:28 by Manas Louise) S/P ACL repair Left Social History Smoking/Tobacco Use Status: Never Smoking risk assessment performed?: Yes Alcohol Intake: current Alcohol Intake frequency: holidays/special occasions only Substance use type: does not use Do you feel safe at home: Yes Do you feel safe in your relationship?: Yes Visit Medication and Allergies Active Medications Generic Name Dose Route Start Last Admin Trade Name Freq PRN Reason Stop Dose Admin Acetaminophen 0 mg 06/25/22 18:53 Acetaminophen 325 Mg Tab PO Q4H PRN PRN Al Hydrox/Mg Hydrox/Simethicone 30 ml 06/25/22 18:53 Mylanta Suspension 30 Ml Cup PO Q2H PRN PRN Aspirin 81 mg 06/26/22 08:30 06/26/22 09:07 Aspirin 81 Mg Chew CH 81 mg DAILY SPRING Administration Clopidogrel Bisulfate 75 mg 06/26/22 08:30 06/26/22 09:07 Clopidogrel 75 Mg Tab PO 75 mg DAILY SPRING Administration Dimethicone/Zinc Oxide 0 gm 06/25/22 18:48 Faby Protect Cream 142 Gm Tube TP PRN PRN Docusate Sodium 100 mg 06/25/22 18:53 Docusate Sodium 100 Mg Cap PO TID PRN PRN Sodium Chloride 500 mls @ 0 mls/hr 06/25/22 14:48 Saline 500ml Bag IV PRN PRN As Directed Sodium Chloride 1,000 mls @ 80 mls/hr 06/25/22 19:00 Saline 1000ml Bag IV [facility]ION [facility] IV Miscellaneous Supplies 1 each 06/25/22 15:00 Iv Access IV DIRECTED SPRING Iohexol 500 ml 06/25/22 16:15 06/25/22 16:13 Omnipaque 350 Mg/Ml 500 Ml Btl-Imaging Package IJ 07/25/22 23:59 100 ml DIRECTED SPRING Administration Magnesium Hydroxide 30 ml 06/25/22 18:53 Milk Of Magnesia 30 Ml Cup PO DAILY PRN PRN Polyethylene Glycol 17 gm 06/25/22 18:53 Polyethylene Glycol 3350 17 Gm Packet PO DAILY PRN PRN Constipation Sodium Chloride 0 ml 06/25/22 14:48 Normal Saline Flush 10 Ml Syr IVP PRN PRN Sodium Chloride 250 ml 06/25/22 16:15 06/25/22 16:05 Normal Saline 250 Ml Bag IJ 50 ml DIRECTED SPRING Administration Allergies shellfish derived Allergy (Severe, Unverified 06/25/22 19:44) bee venom protein (honey bee) Allergy (Intermediate, Unverified 06/25/22 19:44) Results Last Vital Signs Temp 98.1 F 06/26/22 15:15 Pulse 59 L 06/26/22 15:15 Resp 17 06/26/22 15:15 BP 148/86 H 06/26/22 15:15 Pulse Ox 98 06/26/22 15:15 Labs Result diagrams: 06/26/22 06:35 06/26/22 06:35 Labs: Laboratory Results - last 24 hr 06/25/22 06/25/22 06/25/22 14:54 17:42 17:42 WBC RBC Hgb Hct MCV MCH MCHC RDW Plt Count MPV Immature Gran % Neutrophils % Lymphocytes % Monocytes % Eosinophils % Basophils % Nucleated RBC % Absolute Neutrophils Absolute Lymphocytes Absolute Monocytes Absolute Eosinophils Absolute Basophils Sodium Potassium Chloride Carbon Dioxide Anion Gap BUN Creatinine Est GFR (CKD-EPI 2020) Glucose Hemoglobin A1c Calcium Total Bilirubin AST ALT Alkaline Phosphatase Troponin I 50 Total Protein Albumin Triglycerides Total Cholesterol LDL Cholesterol, Calc HDL Cholesterol TSH 0.53 SARS-CoV-2 (PCR) Negative Add-On Test Request 06/26/22 06/26/22 06/26/22 06:35 06:35 06:35 WBC 4.90 RBC 4.63 Hgb 12.8 L Hct 39.4 L MCV 85 MCH 27.6 MCHC 32.5 RDW 15.5 H Plt Count 305 MPV 9.7 Immature Gran % 0.2 Neutrophils % 50.5 Lymphocytes % 32.2 Monocytes % 10.8 Eosinophils % 5.7 Basophils % 0.6 Nucleated RBC % 0.0 Absolute Neutrophils 2.47 Absolute Lymphocytes 1.58 Absolute Monocytes 0.53 Absolute Eosinophils 0.28 Absolute Basophils 0.03 Sodium 139 Potassium 3.9 Chloride 105 Carbon Dioxide 25.7 Anion Gap 8.3 BUN 15 Creatinine 1.1 Est GFR (CKD-EPI 2020) 72.67 Glucose 95 Hemoglobin A1c 6.2 H Calcium 8.8 Total Bilirubin 0.4 AST 14 L ALT 17 Alkaline Phosphatase 71 Troponin I Total Protein 7.5 Albumin 3.6 Triglycerides 109 Total Cholesterol 179 LDL Cholesterol, Calc 113 H HDL Cholesterol 45 TSH SARS-CoV-2 (PCR) Add-On Test Request 06/26/22 08:08 WBC RBC Hgb Hct MCV MCH MCHC RDW Plt Count MPV Immature Gran % Neutrophils % Lymphocytes % Monocytes % Eosinophils % Basophils % Nucleated RBC % Absolute Neutrophils Absolute Lymphocytes Absolute Monocytes Absolute Eosinophils Absolute Basophils Sodium Potassium Chloride Carbon Dioxide Anion Gap BUN Creatinine Est GFR (CKD-EPI 2020) Glucose Hemoglobin A1c Calcium Total Bilirubin AST ALT Alkaline Phosphatase Troponin I Total Protein Albumin Triglycerides Total Cholesterol LDL Cholesterol, Calc HDL Cholesterol TSH SARS-CoV-2 (PCR) Add-On Test Request COMPLETED
--- NOTE | 2022-06-26 17:11 | DSE_ITS ---
Date of service: 06/26/22 Time of Service: 17:11 DS: Diagnosis Discharge Diagnosis (1) Acute cerebrovascular accident (CVA): Status: Acute (2) HTN (hypertension): Status: Chronic (3) BPH (benign prostatic hyperplasia): Status: Chronic (4) Prediabetes: Status: Acute (5) Hyperlipidemia: Status: Acute (6) Carotid stenosis, asymptomatic: Status: Acute Discharge Plan Disposition Patient Disposition: HOME Condition: Serious Discharge Details Reason For Visit: Right MCA CVA Admit Date/Time: 06/25/22 18:48 Admit Provider: Manas Louise Attending Provider: Manas Louise [facility] Hospital Course: Mr Dyson is a 67 year old male with PMHx of HTN, BPH, hypotestosteronism, ED who was a patient on [facility] hospitalist service from 06/25/22 until 06/26/22 for acute CVA, having presented with a sudden onset of L facial weakness and dysarthria. The symptoms were already improving by the time he was in the ED and he was not considered a TPA candidate. CT of the head was negative. CTA head/neck did show mild L carotid stenosis, per Dr Pruitt, which will need to be followed up as outpatient. MRI of the brain confirmed early right-sided subcortical CVA in R frontoparietal region in the R MCA territory. He had a normal echocardiogram where both atria appeared to be normal in size. The patient was started on aspirin and plavix as well as a statin. He will need to remain on dual antiplatelet therapy for 30 days after which he can be continued to aspirin alone. PCP is to follow his hyperlipidemia treatment. The patient was found to be prediabetic on this admission and is being given information about this on discharge. He is instructed to follow up with his PCP in [place] and to postpone his hip surgery. Care for patient as well as completion of his discharge summary on day of discharge took 40 minutes. Home Meds and New Rx's Prescriptions: New clopidogrel 75 mg Tablet 75 mg PO DAILY Qty: 30 0RF aspirin [Children's Aspirin] 81 mg Tablet,Chewable 81 mg CH DAILY Qty: 30 0RF atorvastatin 20 mg tablet 20 mg PO QHS Qty: 30 0RF Continued lisinopril 10 mg tablet 0.5 tab DAILY Label Comments: TAKE 1 TABLET BY MOUTH EVERY DAY tadalafil 5 mg tablet 1 tab DAILY Label Comments: TAKE 1 TABLET (5 MG TOTAL) BY MOUTH DAILY. testosterone 1.62 % (20.25 mg/1.25 gram) Gel In Packet 20 mg DAILY Discharge Instructions Instructions: Aspirin (By mouth), Atorvastatin (By mouth), Clopidogrel (By mouth), Carotid Artery Disease (DC), Ischemic Stroke (DC), Hyperlipidemia (DC), Prediabetes (DC) Additional Instructions: Return to the hospital with any new neurologic symptoms, fever, bleeding, chest pain, or shortness of breath. Follow up with your PCP in [place]. You should post-pone your hip surgery. Stand Alone Forms: Nursing Discharge Form Referrals: PCP [Other] (Please call to make a follow up with your PCP) Activity:: Activity as Tolerated Equipment/Supplies:: No Equipment Needed Diet:: heart healthy Discharge Orders Discharge Orders: Discharge Order (Routine); Ordered 06/26/22 Ordered By: Rachel Ruiz Discharge Data Discharge Date/Time-TO BE ENTERED AT DEPARTURE: 06/26/22 17:56 DS: Summary Time Spent with Patient providing and/or coordinating discharge services: Greater than 30 minutes Status at Discharge Functional status at discharge: independent ambulation Overall status at discharge: patient is back to baseline Mental Status: mental status grossly normal Speech and Movement: speech and movement normal Mood: congruent mood Affect: normal affect Exam Narrative Exam Narrative: General: Pleasant middle-aged male who appears to be at his baseline neurologic status, A&Ox3, no focal deficits HEENT: EOMI, MMM Heart: RRR, no m/r/g Lungs: CTAB Abdomen: soft, nontender, nondistended Extremities: no edema BLEs Psych Mental Status: mental status grossly normal Speech and Movement: speech and movement normal Mood: congruent mood Affect: normal affect DS: Data Vitals/I&O Vitals and I&O: Vital Signs Temperature 36.7 C 06/26/22 15:15 Temperature Source Tympanic 06/26/22 15:15 Pulse 59 L 06/26/22 15:15 Pulse Rhythm Regular 06/26/22 07:00 Pulse 66 06/25/22 19:20 Respiratory Rate 17 06/26/22 15:15 Respiratory Effort Non-Labored 06/26/22 07:00 Respiratory Depth Normal 06/26/22 07:00 Respiratory Pattern Normal 06/26/22 07:00 Blood Pressure 148/86 H 06/26/22 15:15 Blood Pressure Mean 170 06/25/22 19:16 Blood Pressure Position Supine 06/25/22 15:13 Pulse Oximetry 98 06/26/22 15:15 Oxygen Delivery Method Room Air 06/26/22 15:15 Oxygen Flow Rate 0 06/26/22 15:15 Pain Level 0 06/26/22 15:15 Intake & Output 06/25/22 06/26/22 06/26/22 23:59 11:59 23:59 Intake Total 120 / 320 200 / 320 Output Total 1000 / 1500 500 / 1500 Balance -880 / -1180 -300 / -1180 Weight 87.09 kg Intake: Oral 120 / 320 200 / 320 Output: Urine 1000 / 1500 500 / 1500 Other: Urine Color Yellow Yellow Urine Appearance Clear Clear Clear Urine Odor None None Voiding Methods Toilet Toilet Data Completed and Pending Completed studies during hospitalization [Text1]: CT brain: No acute intracranial findings on this noninfused CT scan of the brain. CTA head/neck: 1. No significant narrowing of the carotid and vertebral arteries in the neck.? 2.? Intracranial arteries are patent.? No intraluminal thrombus nor stenoses evident.? No aneurysms. 3. ? Subtle area of hypodensity in the high right frontal subcortical white matter.? This may be significant.? No ring enhancing lesions at this level nor elsewhere in the brain.? No abnormal meningeal enhancement. Brain MRI: Early right-sided subcortical CVA (nonhemorrhagic) in territory of the right middle cerebral artery.? This is in the right frontoparietal region. CXR: No acute pulmonary findings on this single AP portable view of the chest. echo; Normal left ventricular wall thickness and chamber size.? Estimated ejection fraction is 60 to 65%.? Wall motion is normal Normal right ventricular size and systolic function Both atria are normal in size The atrial septum is thin and hypermobile.? There is no intracardiac shunting identified with injection of agitated saline Trileaflet aortic valve.? Mild to moderate aortic regurgitation Normal mitral valve with trace regurgitation Normal tricuspid valve with trace regurgitation Dilated aortic root and ascending aorta Labs on day of discharge: Labs from last 24 hours 06/26/22 06/26/22 06/26/22 08:08 06:35 06:35 WBC 4.90 RBC 4.63 Hgb 12.8 L Hct 39.4 L MCV 85 MCH 27.6 MCHC 32.5 RDW 15.5 H Plt Count 305 MPV 9.7 Immature Gran % 0.2 Neutrophils % 50.5 Lymphocytes % 32.2 Monocytes % 10.8 Eosinophils % 5.7 Basophils % 0.6 Nucleated RBC % 0.0 Absolute Neutrophils 2.47 Absolute Lymphocytes 1.58 Absolute Monocytes 0.53 Absolute Eosinophils 0.28 Absolute Basophils 0.03 Sodium Potassium Chloride Carbon Dioxide Anion Gap BUN Creatinine Est GFR (CKD-EPI 2020) Glucose Hemoglobin A1c 6.2 H Calcium Total Bilirubin AST ALT Alkaline Phosphatase Troponin I Total Protein Albumin Triglycerides Total Cholesterol LDL Cholesterol, Calc HDL Cholesterol TSH SARS-CoV-2 (PCR) Add-On Test Request COMPLETED 06/26/22 06/25/22 06/25/22 06:35 17:42 17:42 WBC RBC Hgb Hct MCV MCH MCHC RDW Plt Count MPV Immature Gran % Neutrophils % Lymphocytes % Monocytes % Eosinophils % Basophils % Nucleated RBC % Absolute Neutrophils Absolute Lymphocytes Absolute Monocytes Absolute Eosinophils Absolute Basophils Sodium 139 Potassium 3.9 Chloride 105 Carbon Dioxide 25.7 Anion Gap 8.3 BUN 15 Creatinine 1.1 Est GFR (CKD-EPI 2020) 72.67 Glucose 95 Hemoglobin A1c Calcium 8.8 Total Bilirubin 0.4 AST 14 L ALT 17 Alkaline Phosphatase 71 Troponin I 50 Total Protein 7.5 Albumin 3.6 Triglycerides 109 Total Cholesterol 179 LDL Cholesterol, Calc 113 H HDL Cholesterol 45 TSH 0.53 SARS-CoV-2 (PCR) Add-On Test Request 06/25/22 14:54 WBC RBC Hgb Hct MCV MCH MCHC RDW Plt Count MPV Immature Gran % Neutrophils % Lymphocytes % Monocytes % Eosinophils % Basophils % Nucleated RBC % Absolute Neutrophils Absolute Lymphocytes Absolute Monocytes Absolute Eosinophils Absolute Basophils Sodium Potassium Chloride Carbon Dioxide Anion Gap BUN Creatinine Est GFR (CKD-EPI 2020) Glucose Hemoglobin A1c Calcium Total Bilirubin AST ALT Alkaline Phosphatase Troponin I Total Protein Albumin Triglycerides Total Cholesterol LDL Cholesterol, Calc HDL Cholesterol TSH SARS-CoV-2 (PCR) Negative Add-On Test Request [facility] All Active Problems (Updated 06/26/22 @ 17:19 by Rachel Ruiz MD) Carotid stenosis, asymptomatic (Acute) Hyperlipidemia (Acute) Prediabetes (Acute) BPH (benign prostatic hyperplasia) (Chronic) HTN (hypertension) (Chronic) Acute cerebrovascular accident (CVA) (Acute) Surgical History (Updated 06/26/22 @ 08:28 by Manas Louise) S/P ACL repair Left Social History Smoking/Tobacco Use Status: Never Smoking risk assessment performed?: Yes Alcohol Intake: current Alcohol Intake frequency: holidays/special occasions only Substance use type: does not use Do you feel safe at home: Yes Do you feel safe in your relationship?: Yes
== END 2022-06-26 17:56 | disposition home or self-care (01) | DRG 66 ==
LOC: ER 19:33 → MS 20:04
PROVIDERS: Internal Medicine; Admitting Provider Family Medicine; Emergency Provider Student in an Organized Health Care Education/Training Program; Visit Provider Family Medicine
DX: I63.89 Other cerebral infarction (principal); R47.1 Dysarthria and anarthria; R20.0 Anesthesia of skin; N40.0 Benign prostatic hyperplasia without lower urinary tract symptoms; I10 Essential (primary) hypertension; R29.810 Facial weakness; R73.03 Prediabetes; E78.5 Hyperlipidemia, unspecified; I65.22 Occlusion and stenosis of left carotid artery
CPT/HCPCS: 36415; 70496; 70498; 80053; 80061; 87635; 93306; 97162; 99223; 99285; 70450; 70551; 71045; 83036; 83735; 84443; 84484; 85025; 99239